=== PATIENT | male | born 1990 | race Two or more races ===

== ENCOUNTER 2023-07-02 22:39 | Inpatient (IN) ==
--- NOTE | 2023-07-02 23:19 | DR.EXTPAIN ---
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 Patient cannot recall: trauma or fall, fever, chills , extremity weakness. Patient states that he has been having nausea and pain with ambulation. Chief Complaint:: Patient stated that approx two weeks ago he noticed that his left leg started swelling. Patient left leg from the knee to the foot is noted to be swollen, Red, Hot, with 3+ pitting edema from the knee to the foot. Self Treatment fo Chief Complaint: N/A COVID-19 Coronavirus risk:travel/contact w/high risk person: No Has patient experienced Coronavirus symptoms: No Source History Provided: Patient and Family Member Mode of arrival Mode of Arrival: Ambulatory Timing Onset of Chief Complaint: 06/18/23 PMH PMH Past Medical History: No Past Surgical History: No Family History History of Family Medical Conditions: No Social History Does patient currently use any type of tobacco product: No Have you used tobacco products in the last 12 months: No Type of Tobacco Use: None Does any household member use tobacco: No Alcohol Use: None Do you use any recreational Drugs:: No Lives With: Family Lives Where: Home Travel Risk Coronavirus risk:travel/contact w/high risk person: No Has patient experienced Coronavirus symptoms: No Infectious screening In the last 2 months have you had wt loss of >10#?: NO Have you had fever, night sweats or hemotysis?: No Have you traveled outside the country in the last 6 months?: No Isolation: Standard ROS Review of Systems Constitutional: Weakness Eyes: No Symptoms Reported ENTM: No Symptoms Reported Respiratoy: No Symptoms Reported Cardiovascular: No Symptoms Reported Gastrointestinal/Abdominal: Nausea and Vomiting Genitourinary: No Symptoms Reported Neurological: No Symptoms Reported Musculoskeletal: Left and Leg (pain) Integumentary: Change in Color (marked erythema,edema LLE) and Other (Warmth LLE) Hematologic/Lymphatic: No Symptoms Reported Endocrine: No Symptoms Reported Psychiatric: No Symptoms Reported All Other Systems: Reviewed and Negative PE Vital Signs Vitals: Vital Signs Temperature 98.5 F Pulse Rate 102 Pulse Rate 102 Pulse Rate 96 Pulse Rate 96 Pulse Rate 95 Pulse Rate 97 Pulse Rate 97 Pulse Rate 100 Pulse Rate 99 Pulse Rate 102 Pulse Rate 103 Pulse Rate 108 Pulse Rate 104 Pulse Rate 118 Respiratory Rate 27 Respiratory Rate 23 Respiratory Rate 23 Respiratory Rate 23 Respiratory Rate 26 Respiratory Rate 27 Respiratory Rate 18 Respiratory Rate 20 Blood Pressure 123/67 Blood Pressure 120/69 Blood Pressure 130/71 Blood Pressure 124/74 Blood Pressure 119/74 Blood Pressure 119/74 Blood Pressure 136/80 O2 Sat by Pulse Oximetry 100 O2 Sat by Pulse Oximetry 100 O2 Sat by Pulse Oximetry 100 O2 Sat by Pulse Oximetry 100 O2 Sat by Pulse Oximetry 99 O2 Sat by Pulse Oximetry 100 O2 Sat by Pulse Oximetry 100 O2 Sat by Pulse Oximetry 99 O2 Sat by Pulse Oximetry 98 O2 Sat by Pulse Oximetry 98 O2 Sat by Pulse Oximetry 99 O2 Sat by Pulse Oximetry 99 O2 Sat by Pulse Oximetry 99 O2 Sat by Pulse Oximetry 95 General Limitations: No Limitations General Appearance: Alert and In No Apparent Distress Head Head Exam: Normal Inspection Eyes Eye exam: Normal Appearance ENT ENT Exam: Normal Exam Neck Neck Exam: Normal Inspection Chest Chest Inspection: Normal Inspection Respiratory Respiratory Exam: Normal Lung Sounds Bilat Respiratory Exam: Bilateral: Clear to Auscultation Cardiovascular Cardiovascular Exam: Regular Rate and Normal Rhythm Abdominal Exam Abdominal Exam: Normal Inspection, Normal Bowel Sounds and Soft Extremities Extremities Exam: Tenderness (LLE), Edema (LLE ) and Joint Swelling Lower Extremities Hip/Pelvis Exam: Tenderness (LLE) and Swelling Back Back Exam: Normal Inspection Neurological Neurological Exam: Alert, Oriented X3 and CN II-XII Intact Psychiatric Psychiatric Exam: Normal Affect and Normal Mood Skin Skin Exam: Warm, Dry, Intact and Normal Color MDM Differential Diagnosis Differential Diagnosis: Fracture and Other (cellulitis,osteomyelitis,dislocation,dvt) COURSE Treatment Treatment: Patient was brought to a monitored room and IV access was initiated. Patient received vancomycin 1500 mg IV loading dose and NS w/ 20meq KCL iv at 100ml/hr iv because of K 2.9. 12:[address] Hansen who accepts Patient to his service for further inpatient evaluation. Dr Hansen requested doppler U/s of the LLE and vancomycin 1g iv q 12hrs. 02:32 Patient's doppler u/s was negative for DVT. ROR Labs Reviewed 07/02/23 23:30 07/02/23 23:30 Laboratory: WBC 20.0 X10^3/uL (3.6-10.0) H 07/02/23 23:30 RBC 4.59 X10^6/uL (4.7-6.0) L 07/02/23 23:30 Hgb 13.7 g/dL (13.5-18.0) 07/02/23 23:30 Hct 40.3 % (42.0-54.0) L 07/02/23 23:30 MCV 87.9 fL (80.0-100.0) 07/02/23 23: MCH 29.9 pg (27.0-34.0) 07/02/23 23: MCHC 34.0 g/dL (33.0-35.0) 07/02/23 23: RDW 14.0 % (11.6-16.5) 07/02/23: Plt Count 272 X10^3/uL (150.0-450.0) 07/02/23 23:30 MPV 7.8 fL (7.4-11.0) 07/02/23 23:30 Neut % (Auto) 81.6 % (42.0-75.0) H 07/02/23 23:30 Lymph % (Auto) 12.4 % (21.0-51.0) L 07/02/23 23:30 [place] % (Auto) 5.6 % (0.0-13.0) 07/02/23 23:30 Eos % (Auto) 0.0 % (0.9-2.9) L 07/02/23 23:30 Baso % (Auto) 0.4 % (0.2-1.0) 07/02/23 23:30 Neut # (Auto) 16.4 x10^3/uL (2.2-4.8) H 07/02/23 23:30 Lymph # (Auto) 2.5 X10^3/uL (1.3-2.9) 07/02/23 23:30 [place] # (Auto) 1.1 x10^3/uL (0.3-0.8) H 07/02/23 23:30 Eos # (Auto) 0.0 x10^3/uL (0.0-0.2) 07/02/23 23:30 Baso # (Auto) 0.1 X10^3/uL (0.0-0.1) 07/02/23 23:30 Absolute Nucleated RBC 0.0 /100WBC 07/02/23 23:30 PT 15.1 SECONDS (11.8-14.3) 07/02/23 23:30 INR Target Range - 07/02/23 23: INR 1.22 (0.8-1.3) 07/02/23 23:30 APTT 33.0 SECONDS (22.9-36.5) 07/02/23 23:30 PTT Comment - 07/02/23 23: D-Dimer 2.07 ug/ml (0.0-0.57) H 07/02/23 23:30 Sodium 132 mmol/L (136-145) L 07/02/23 23:30 Corrected Sodium TNP 07/02/23 23:30 Potassium 2.9 mmol/L (3.5-5.1) L* 07/02/23 23:30 Chloride 96 mmol/L (98-107) L 07/02/23 23:30 Carbon Dioxide 26.5 mmol/L (21-32) 07/02/23 23:30 BUN 13 mg/dL (7-18) 07/02/23 23:30 Creatinine 1.25 mg/dL (0.70-1.30) 07/02/23 23:30 Est GFR (MDRD) Af Amer > 60 (>60) 07/02/23 23:30 Est GFR (MDRD) Non-Af > 60 (>60) 07/02/23 23:30 Glucose 100 mg/dL (65-99) H 07/02/23 23:30 Lactic Acid 2.0 mmol/L (0.4-2.0) 07/02/23 23:30 Calcium 8.6 mg/dL (8.5-10.1) 07/02/23 23:30 Corrected Calcium TNP 07/02/23 23:30 Total Bilirubin 1.00 mg/dL (0.2-1.0) 07/02/23 23:30 AST 39 Units/L (15-37) H 07/02/23 23:30 ALT 119 Units/L (12-78) H 07/02/23 23:30 Alkaline Phosphatase 137 Units/L (46-116) H 07/02/23 23:30 C-Reactive Protein 50.90 mg/L (0-3.0) H 07/02/23 23:30 Total Protein 9.0 g/dL (6.4-8.2) H 07/02/23 23:30 Albumin 3.6 g/dL (3.4-5.0) 07/02/23 23:30 Globulin 5.4 g/dL (2.5-4.5) H 07/02/23 23:30 Albumin/Globulin Ratio 0.7 Ratio (1.1-2.1) L 07/02/23 23:30 Specimen Type Clean catch urine 07/03/23 00:22 Urine Color Pale yellow (YELLOW) 07/03/23 00:22 Urine Appearance Clear (CLEAR) 07/03/23 00:22 Urine pH 6.0 (5.0 - 8.0) 07/03/23 00:22 Ur Specific [place] 1.015 (1.000-1.030) 07/03/23 00:22 Urine Protein Negative (NEGATIVE) 07/03/23 00:22 Urine Glucose (UA) Negative (NEGATIVE) 07/03/23 00:22 Urine Ketones Negative (NEGATIVE) 07/03/23 00:22 Urine Blood Negative (NEGATIVE) 07/03/23 00:22 Urine Nitrite Negative (NEGATIVE) 07/03/23 00:22 Urine Bilirubin Negative (NEGATIVE) 07/03/23 00:22 Urine Urobilinogen Normal (NORMAL) 07/03/23 00:22 Ur Leukocyte Esterase Negative (NEGATIVE) 07/03/23 00:22 Opioid Opioid Risk Tool Age (Chad box if 16-45): Yes History of Preadolescent Sexual Abuse: No Total: 1 Total Score Risk Category: Low Risk Copyright: [employer] B[employer]OM predicting aberrant behaviors Discharge Plan Diagnosis Discharge Problem: Cellulitis of left lower extremity, Acute hypokalemia Discharge Plan Patient Disposition: 09 ADMITTED INPATIENT Condition: Stable Orders to Discharge Patient Discharge Orders: Transfer (Routine); Ordered 07/03/23 Ordered By: Agnes Aguilar
[2023-07-02] MEDS: VANCOMYCIN IV *PREMIX 1.5 G/300 ML BAG 1.5 G/300 ML PIGGYBACK IV SCH (23:35)
[2023-07-02 23:47] LABS: BASOPHILS # (AUTO) 0.1 X10^3/uL (0.0-0.1); BASOPHILS % (AUTO) 0.4 % (0.2-1.0); HEMATOCRIT 40.3 % (42.0-54.0); HEMOGLOBIN 13.7 g/dL (13.5-18.0); LYMPHOCYTES # (AUTO) 2.5 X10^3/uL (1.3-2.9); LYMPHOCYTES % (AUTO) 12.4 % (21.0-51.0); MEAN CORPUSCULAR HEMOGLOBIN 29.9 pg (27.0-34.0); MEAN CORPUSCULAR VOLUME 87.9 fL (80.0-100.0); MEAN PLATELET VOLUME 7.8 fL (7.4-11.0); MONOCYTES # (AUTO) 1.1 x10^3/uL (0.3-0.8); MONOCYTES % (AUTO) 5.6 % (0.0-13.0); NEUTROPHILS # (AUTO) 16.4 x10^3/uL (2.2-4.8); NEUTROPHILS % (AUTO) 81.6 % (42.0-75.0); PLATELET COUNT 272 X10^3/uL (150.0-450.0); RED BLOOD COUNT 4.59 X10^6/uL (4.7-6.0)
[2023-07-02 23:53] LABS: ALANINE AMINOTRANSFERASE 119 Units/L (12-78); ALBUMIN 3.6 g/dL (3.4-5.0); ALKALINE PHOSPHATASE 137 Units/L (46-116); ASPARTATE AMINO TRANSFERASE 39 Units/L (15-37); BLOOD UREA NITROGEN 13 mg/dL (7-18); CALCIUM 8.6 mg/dL (8.5-10.1); CARBON DIOXIDE 26.5 mmol/L (21-32); CHLORIDE 96 mmol/L (98-107); CREATININE 1.25 mg/dL (0.70-1.30); GLUCOSE 100 mg/dL (65-99); SODIUM 132 mmol/L (136-145); eGFR NON BLACK RACES > 60 (>60)
[2023-07-02 23:54] LABS: POTASSIUM 2.9 mmol/L (3.5-5.1)
--- NOTE | 2023-07-03 | RAD ---
EXAM: LOWER LEG, TIB/FIB LEFT HISTORY: Patient stated that approx two weeks ago he noticed that his left leg started swelling. Patient left leg from the knee to the foot is noted to be swollen, Red, Hot, with 3+ pitting edema from the knee t o the foot.; NO MEDICAL HX Unavailable COMPARISON: None. FINDINGS: AP and lateral radiographs of the left lower extremity demonstrate no evidence for acute cortical dis ruption. There is mild soft tissue swelling involving the anterior lower leg. No radiopaque foreign bodies. IMPRESSION: Mild soft tissue swelling anterior lower leg. No acute bony abnormality THIS IS AN ELECTRONICALLY VERIFIED FINAL REPORT 07/02/2023 11:57 PM - Electronically signed by Lionel Bess MD
[2023-07-03] MEDS: NS + KCL 20 MEQ/L 1,000 ML IV ONE (00:06)
[2023-07-03 00:38] LABS: BILIRUBIN,URINE NEGATIVE (NEGATIVE); BLOOD/HEMOGLOBIN,URINE NEGATIVE (NEGATIVE); GLUCOSE, URINE NEGATIVE (NEGATIVE); KETONES,URINE NEGATIVE (NEGATIVE); LEUKOCYTE ESTERASE ,URINE NEGATIVE (NEGATIVE); NITRITES,URINE NEGATIVE (NEGATIVE); PROTEIN,URINE NEGATIVE (NEGATIVE); UROBILINOGEN,URINE NORMAL (NORMAL)
[2023-07-03 00:42] LABS: APPEARANCE,URINE CLEAR (CLEAR); COLOR,URINE PALE YELLOW (YELLOW)
--- NOTE | 2023-07-03 01:38 | EKG ---
Test Reason : HypoKalemia Blood Pressure : */* mmHG Vent. Rate : 98 BPM Atrial Rate : 98 BPM P-R Int : 194 ms QRS Dur : 112 ms QT Int : 376 ms P-R-T Axes : 61 69 34 degrees QTc Int : 480 ms Normal sinus rhythm RSR' or QR pattern in V1 suggests right ventricular conduction delay Abnormal ECG No previous ECGs available Confirmed by Artemio Rand MD ([id number]) on 07/03/2023 7:25:59 AM Referred By: Confirmed By: Artemio Rand MD
[2023-07-03 01:55] LABS: INR 1.22 (0.8-1.3)
--- NOTE | 2023-07-03 02:31 | VAS ---
EXAM:LOWER EXT VENOUS, UNILATERALHISTORY:LLE edema,pain with amb,for 2 wks; LLE EDEMA,PAIN,REDNESS UnavailableCOMPARISON:None.TECHNIQUE:Mul tiple hall scale and color flow Doppler images of the deep venous system were obtained of the left lower extremity.FINDINGS:The deep venous system of the left lower extremity were evaluated from the level of the common femoral vein through the popliteal vein. Normal color flow and augmentation can be observed. In addition, normal compression is seen throughout the deep venous system.There are prominent lymph nodes in the left groin the largest measuring 3.5 cm.IMPRESSION:Negative for DVT.THIS IS AN ELECTRONICALLY VERIFIED FINAL REPORT07/03/2023 2:27 AM - Electronically signed by Lionel Bess MD
[2023-07-03] MEDS ORDERED: CONSULT PHARMACY - POTASSIUM & MAGNESIUM XX SCH (03:21)
[2023-07-03] MEDS ORDERED: VANCOMYCIN IV *PREMIX 1 G/200 ML BAG 1 G/200 ML PIGGYBACK IV SCH (03:21)
[2023-07-03] MEDS ORDERED: REGLAN INJ 10 MG VIAL IVP PRN (03:21)
[2023-07-03 03:52] VITALS: BMI 32.8
[2023-07-03] MEDS: K-DUR TAB 20 MEQ PO ONE ×2 (05:05→08:46)
[2023-07-03 06:34] LABS: BASOPHILS # (AUTO) 0.1 X10^3/uL (0.0-0.1); BASOPHILS % (AUTO) 0.9 % (0.2-1.0); EOSINOPHILS % (AUTO) 0.1 % (0.9-2.9); HEMATOCRIT 39.5 % (42.0-54.0); HEMOGLOBIN 13.3 g/dL (13.5-18.0); LYMPHOCYTES # (AUTO) 2.2 X10^3/uL (1.3-2.9); LYMPHOCYTES % (AUTO) 13.8 % (21.0-51.0); MEAN CORPUSCULAR HGB CONC 33.7 g/dL (33.0-35.0); MEAN PLATELET VOLUME 8.1 fL (7.4-11.0); MONOCYTES # (AUTO) 1.3 x10^3/uL (0.3-0.8); MONOCYTES % (AUTO) 8.3 % (0.0-13.0); NEUTROPHILS # (AUTO) 12.5 x10^3/uL (2.2-4.8); NEUTROPHILS % (AUTO) 76.9 % (42.0-75.0); PLATELET COUNT 254 X10^3/uL (150.0-450.0); RED BLOOD COUNT 4.44 X10^6/uL (4.7-6.0); RED CELL DISTRIBUTION WIDTH 14.2 % (11.6-16.5); WHITE BLOOD COUNT 16.3 X10^3/uL (3.6-10.0)
[2023-07-03 06:55] LABS: ALANINE AMINOTRANSFERASE 101 Units/L (12-78); ALBUMIN 3.2 g/dL (3.4-5.0); ALKALINE PHOSPHATASE 125 Units/L (46-116); ASPARTATE AMINO TRANSFERASE 32 Units/L (15-37); BLOOD UREA NITROGEN 12 mg/dL (7-18); CALCIUM 8.6 mg/dL (8.5-10.1); CARBON DIOXIDE 27.5 mmol/L (21-32); CHLORIDE 100 mmol/L (98-107); COR CA(FOR HYPOALB) 9.2 mg/dL (8.5-10.1); CREATININE 0.97 mg/dL (0.70-1.30); GLUCOSE 97 mg/dL (65-99); POTASSIUM 3.4 mmol/L (3.5-5.1); SODIUM 133 mmol/L (136-145); TOTAL PROTEIN 8.5 g/dL (6.4-8.2); eGFR NON BLACK RACES > 60 (>60)
[2023-07-03] MEDS: BENADRYL CAP/TAB 25 MG PO SCH (08:46)
[2023-07-03] MEDS: NS 1,000 ML IV 1,000 ML IV SCH (13:07)
[2023-07-03 15:04] LABS: ALANINE AMINOTRANSFERASE 91 Units/L (12-78); ALKALINE PHOSPHATASE 115 Units/L (46-116); ASPARTATE AMINO TRANSFERASE 29 Units/L (15-37); BLOOD UREA NITROGEN 11 mg/dL (7-18); CALCIUM 8.4 mg/dL (8.5-10.1); CARBON DIOXIDE 27.1 mmol/L (21-32); CHLORIDE 103 mmol/L (98-107); COR CA(FOR HYPOALB) 9.2 mg/dL (8.5-10.1); CREATININE 0.99 mg/dL (0.70-1.30); GLUCOSE 86 mg/dL (65-99); POTASSIUM 3.9 mmol/L (3.5-5.1); SODIUM 135 mmol/L (136-145); TOTAL PROTEIN 8.2 g/dL (6.4-8.2); eGFR NON BLACK RACES > 60 (>60)
[2023-07-04 05:30] LABS: BASOPHILS # (AUTO) 0.1 X10^3/uL (0.0-0.1); BASOPHILS % (AUTO) 1.1 % (0.2-1.0); EOSINOPHILS # (AUTO) 0.2 x10^3/uL (0.0-0.2); HEMATOCRIT 39.7 % (42.0-54.0); HEMOGLOBIN 13.3 g/dL (13.5-18.0); LYMPHOCYTES # (AUTO) 3.3 X10^3/uL (1.3-2.9); LYMPHOCYTES % (AUTO) 29.4 % (21.0-51.0); MEAN CORPUSCULAR HGB CONC 33.4 g/dL (33.0-35.0); MEAN CORPUSCULAR VOLUME 89.8 fL (80.0-100.0); MEAN PLATELET VOLUME 8.3 fL (7.4-11.0); MONOCYTES # (AUTO) 0.8 x10^3/uL (0.3-0.8); MONOCYTES % (AUTO) 7.5 % (0.0-13.0); NEUTROPHILS # (AUTO) 6.7 x10^3/uL (2.2-4.8); PLATELET COUNT 257 X10^3/uL (150.0-450.0); RED BLOOD COUNT 4.42 X10^6/uL (4.7-6.0); RED CELL DISTRIBUTION WIDTH 14.2 % (11.6-16.5); WHITE BLOOD COUNT 11.2 X10^3/uL (3.6-10.0)
[2023-07-04 08:40] LABS: CREATININE 0.84 mg/dL (0.70-1.30); VANCOMYCIN,TROUGH 5.5 ug/mL (15-20)
[2023-07-04] MEDS: PHARMACY COMMENT IV NR (08:54)
[2023-07-04] MEDS: VANCOMYCIN IV *PREMIX 1.25 G/250 ML BAG 1.25 G/250 ML PIGGYBACK IV SCH (09:29)
--- NOTE | 2023-07-04 11:05 | DR.H&P ---
H&P History & Physical for Day of: H&P Date: 07/02/23 Chief Complaint Chief Complaint: pain, redness and swelling to left leg History of Present Illness History of Present Illness: PT IS 33 HM, ER ADMISSION WITH CO LLE PAIN, REDNESS AND SWELLING OVER THE PAST TWO WEEKS. PT STATES HE HAS POSSIBLE INSECT BITE TO LEFT LOWER LEG, STARTED WITH ITCHING, THEN TWO SMALL BLISTERS. PT CO NAUSEA DUE TO PAIN AND FEVER. PT DENIES ANY PMH OF HTN OR DM. PT ADMITTED FOR TREATMENT AND EVALUATION OF ACUTE ILLNESS Social History Does patient currently use any type of tobacco product: No Have you used tobacco products in the last 12 months: No Type of Tobacco Use: None Does any household member use tobacco: No Alcohol Use: None Drug Use: None Medications Home Medications: Home Medications Medication Instructions Recorded Confirmed Type NK 07/02/23 07/02/23 History Allergies Allergies Allergy/AdvReac Type Severity Reaction Status Date / Time No Known Allergies Allergy Verified 07/02/23 23:16 Labs 07/04/23 04:25 07/04/23 08:11 Labs: 07/02/23 23:30 Blood Blood Culture - Preliminary 07/02/23 23:25 Blood Blood Culture - Preliminary Laboratory WBC 11.2 X10^3/uL (3.6-10.0) H 07/04/23 04:25 RBC 4.42 X10^6/uL (4.7-6.0) L 07/04/23 04:25 Hgb 13.3 g/dL (13.5-18.0) L 07/04/23 04:25 Hct 39.7 % (42.0-54.0) L 07/04/23 04:25 MCV 89.8 fL (80.0-100.0) 07/04/23 04:25 MCH 30.0 pg (27.0-34.0) 07/04/23 04:25 MCHC 33.4 g/dL (33.0-35.0) 07/04/23 04:25 RDW 14.2 % (11.6-16.5) 07/04/23 04:25 Plt Count 257 X10^3/uL (150.0-450.0) 07/04/23 04:25 MPV 8.3 fL (7.4-11.0) 07/04/23 04:25 Neut % (Auto) 60.0 % (42.0-75.0) 07/04/23 04:25 Lymph % (Auto) 29.4 % (21.0-51.0) 07/04/23 04:25 [place] % (Auto) 7.5 % (0.0-13.0) 07/04/23 04:25 Eos % (Auto) 2.0 % (0.9-2.9) 07/04/23 04:25 Baso % (Auto) 1.1 % (0.2-1.0) H 07/04/23 04:25 Neut # (Auto) 6.7 x10^3/uL (2.2-4.8) H 07/04/23 04:25 Lymph # (Auto) 3.3 X10^3/uL (1.3-2.9) H 07/04/23 04:25 [place] # (Auto) 0.8 x10^3/uL (0.3-0.8) 07/04/23 04:25 Eos # (Auto) 0.2 x10^3/uL (0.0-0.2) 07/04/23 04:25 Baso # (Auto) 0.1 X10^3/uL (0.0-0.1) 07/04/23 04:25 Absolute Nucleated RBC 0.0 /100WBC 07/04/23 04:25 PT 15.1 SECONDS (11.8-14.3) 07/02/23 23:30 INR Target Range - 07/02/23 23:30 INR 1.22 (0.8-1.3) 07/02/23 23:30 APTT 33.0 SECONDS (22.9-36.5) 07/02/23 23:30 PTT Comment - 07/02/23 23:30 D-Dimer 2.07 ug/ml (0.0-0.57) H 07/02/23 23:30 Sodium 135 mmol/L (136-145) L 07/03/23 14:20 Corrected Sodium TNP 07/03/23 14:20 Potassium 3.9 mmol/L (3.5-5.1) 07/03/23 14:20 Chloride 103 mmol/L (98-107) 07/03/23 14:20 Carbon Dioxide 27.1 mmol/L (21-32) 07/03/23 14:20 BUN 11 mg/dL (7-18) 07/03/23 14:20 Creatinine 0.84 mg/dL (0.70-1.30) 07/04/23 08:11 Est GFR (MDRD) Af Amer > 60 (>60) 07/03/23 14:20 Est GFR (MDRD) Non-Af > 60 (>60) 07/03/23 14:20 Glucose 86 mg/dL (65-99) 07/03/23 14:20 Hemoglobin A1c 5.7 % 07/03/23 05:48 Lactic Acid 2.0 mmol/L (0.4-2.0) 07/02/23 23:30 Calcium 8.4 mg/dL (8.5-10.1) L 07/03/23 14:20 Corrected Calcium 9.2 mg/dL (8.5-10.1) 07/03/23 14:20 Magnesium 2.0 mg/dL (2.0-2.9) 07/03/23 05:48 Total Bilirubin 1.30 mg/dL (0.2-1.0) H 07/03/23 14:20 AST 29 Units/L (15-37) 07/03/23 14:20 ALT 91 Units/L (12-78) H 07/03/23 14:20 Alkaline Phosphatase 115 Units/L (46-116) 07/03/23 14:20 C-Reactive Protein 50.90 mg/L (0-3.0) H 07/02/23 23:30 Total Protein 8.2 g/dL (6.4-8.2) 07/03/23 14:20 Albumin 3.0 g/dL (3.4-5.0) L 07/03/23 14:20 Globulin 5.2 g/dL (2.5-4.5) H 07/03/23 14:20 Albumin/Globulin Ratio 0.6 Ratio (1.1-2.1) L 07/03/23 14:20 Specimen Type Clean catch urine 07/03/23 00:22 Urine Color Pale yellow (YELLOW) 07/03/23 00:22 Urine Appearance Clear (CLEAR) 07/03/23 00:22 Urine pH 6.0 (5.0 - 8.0) 07/03/23 00:22 Ur Specific [place] 1.015 (1.000-1.030) 07/03/23 00:22 Urine Protein Negative (NEGATIVE) 07/03/23 00:22 Urine Glucose (UA) Negative (NEGATIVE) 07/03/23 00:22 Urine Ketones Negative (NEGATIVE) 07/03/23 00:22 Urine Blood Negative (NEGATIVE) 07/03/23 00:22 Urine Nitrite Negative (NEGATIVE) 07/03/23 00:22 Urine Bilirubin Negative (NEGATIVE) 07/03/23 00:22 Urine Urobilinogen Normal (NORMAL) 07/03/23 00:22 Ur Leukocyte Esterase Negative (NEGATIVE) 07/03/23 00:22 Vancomycin Trough 5.5 ug/mL (15-20) L 07/04/23 08:11 Review of Systems Constitutional: Fever Eyes: No Symptoms Reported ENT: No Symptoms Reported Respiratory: No Symptoms Reported Cardiovascular: No Symptoms Reported Gastrointestinal: Nausea Genitourinary: No Symptoms Reported Musculoskeletal: Leg Pain Skin: Rash Neurological: No Symptoms Reported Physical Exam Vital Signs: Vital Signs Temperature 97.3 F Temperature 98.2 F Pulse Rate [Left] 73 Pulse Rate [Left] 62 Respiratory Rate 16 Respiratory Rate 19 Blood Pressure [Left Arm] 121/69 Blood Pressure [Left Arm] 119/69 O2 Sat by Pulse Oximetry 97 O2 Sat by Pulse Oximetry 99 Oriented: Normal Eyes: Normal Ear: Normal Nose: Normal Throat: Normal Respiratory: Clear Throughout Cardiovascular: Normal : Normal Auscultation: Bowel Sounds: Normal Palpation: Normal Tenderness: Normal Skin: Rash, Red and Tender Musculoskeletal: Leg, Foot, Swelling and Tender Psychiatric: Normal Mood Description: Calm Affect: Normal Speech Pattern: Clear and Appropriate Assessment/Plan (1) Cellulitis of left lower extremity: Narrative Support Text: ADMIT, BC ON ADMISSION PAIN CONTROL IV ATBX, XRAY ON ADMISSION AND US RO DVT Status: Acute (2) Acute hypokalemia: Status: Acute
[2023-07-04] MEDS: NS 1,000 ML IV 1,000 ML IV SCH (13:37)
[2023-07-04] MEDS: PROTONIX TAB 40 MG PO SCH (13:37)
--- NOTE | 2023-07-04 15:03 | RAD ---
EXAM:CHEST, PA/LAT ADULTHISTORY:Chest pain with deep breathing;COMPARISON:No relevant prior studies were available for comparison at the time of interpretation.TECHNIQUE:CHEST, PA/LAT ADULTFINDINGS:Chest:Lines and tubes: Cardiac leads overlie the chest.Mediastinum: Cardiac and mediastinal shadow is within normal limits for size and contour.Pulmonary vessels: No pulmonary vascular congestion.Lung sarmiento: No suspicious airspace opacity.Pleura: No effusion. No pneumothorax.Bones and soft tissues: No acute osseous or soft tissue abnormality.IMPRESSION:1. No acute cardiopulmonary abnormalityTHIS IS AN ELECTRONICALLY VERIFIED FINAL REPORT07/04/2023 3:00 PM - Electronically signed by Andres Ortega MD
[2023-07-05] MEDS: PHARMACY COMMENT IV NR (05:48)
[2023-07-05 06:22] LABS: BASOPHILS # (AUTO) 0.1 X10^3/uL (0.0-0.1); BASOPHILS % (AUTO) 0.8 % (0.2-1.0); EOSINOPHILS # (AUTO) 0.2 x10^3/uL (0.0-0.2); EOSINOPHILS % (AUTO) 2.7 % (0.9-2.9); HEMATOCRIT 38.9 % (42.0-54.0); HEMOGLOBIN 12.8 g/dL (13.5-18.0); LYMPHOCYTES # (AUTO) 2.2 X10^3/uL (1.3-2.9); LYMPHOCYTES % (AUTO) 28.3 % (21.0-51.0); MEAN CORPUSCULAR HEMOGLOBIN 29.7 pg (27.0-34.0); MEAN CORPUSCULAR VOLUME 89.9 fL (80.0-100.0); MEAN PLATELET VOLUME 8.6 fL (7.4-11.0); MONOCYTES # (AUTO) 0.5 x10^3/uL (0.3-0.8); MONOCYTES % (AUTO) 6.3 % (0.0-13.0); NEUTROPHILS # (AUTO) 4.8 x10^3/uL (2.2-4.8); NEUTROPHILS % (AUTO) 61.9 % (42.0-75.0); PLATELET COUNT 276 X10^3/uL (150.0-450.0); RED BLOOD COUNT 4.33 X10^6/uL (4.7-6.0); RED CELL DISTRIBUTION WIDTH 14.1 % (11.6-16.5); WHITE BLOOD COUNT 7.7 X10^3/uL (3.6-10.0)
[2023-07-05 06:41] LABS: ALANINE AMINOTRANSFERASE 96 Units/L (12-78); ALBUMIN 2.6 g/dL (3.4-5.0); ALKALINE PHOSPHATASE 143 Units/L (46-116); ASPARTATE AMINO TRANSFERASE 47 Units/L (15-37); BLOOD UREA NITROGEN 7 mg/dL (7-18); CALCIUM 8.1 mg/dL (8.5-10.1); CARBON DIOXIDE 27.6 mmol/L (21-32); CHLORIDE 107 mmol/L (98-107); COR CA(FOR HYPOALB) 9.2 mg/dL (8.5-10.1); CREATININE 0.93 mg/dL (0.70-1.30); GLUCOSE 91 mg/dL (65-99); POTASSIUM 3.8 mmol/L (3.5-5.1); SODIUM 139 mmol/L (136-145); TOTAL PROTEIN 6.9 g/dL (6.4-8.2); eGFR NON BLACK RACES > 60 (>60)
[2023-07-05] MEDS: BACTRIM DS TAB PO SCH (12:39)
[2023-07-05] MEDS: CIPRO TAB 500 MG PO SCH (12:39)
--- NOTE | 2023-07-05 20:50 | PCM.PROG ---
Progress Note Progress Note for Day of Date of Exam: 07/05/23 Subjective Subjective: The patient reports some mild to moderate comfort in the left leg. He states that it is better overall than it has been. The area of concern in his left lower leg is still warm, less erythematous, and mildly tender to palpation. I see that his CRP has trended up since he has been here despite him being on IV vancomycin. I will add oral ciprofloxacin and Bactrim DS today to see if this will help his cellulitis resolve quicker. We will recheck ESR and another CRP tomorrow. Past Medical Family Social History Allergies: Allergies No Known Allergies Allergy (Verified 07/02/23 23:16) Review of Systems ROS: No change since H&P Vital Signs and I&O's Vital Signs: Vital Signs Temperature 98.3 F Temperature 98.4 F Pulse Rate [Left] 79 Pulse Rate [Left] 64 Respiratory Rate 20 Respiratory Rate 18 Blood Pressure [Left Arm] 140/82 Blood Pressure [Left Arm] 130/76 O2 Sat by Pulse Oximetry 99 O2 Sat by Pulse Oximetry 99 Intake and Output: Intake & Output 07/03/23 07/04/23 07/05/23 07/06/23 11:59 11:59 11:59 11:59 Intake Total 251 / 251 2796 / 2796 3921 / 3921 1731 / 1731 Output Total 1000 / 1000 Balance -749 / -749 2796 / 2796 3921 / 3921 1731 / 1731 Physical Exam Oriented: Normal Eyes: Normal Ear: Normal Nose: Normal Throat: Normal Cardiovascular: Normal : Normal Auscultation: Bowel Sounds: Normal Tenderness: Normal Skin: Rash, Red, Tender and Other (Mild edema) Musculoskeletal: Leg, Foot, Swelling and Tender Psychiatric: Normal Mood Description: Calm Affect: Normal Speech Pattern: Clear and Appropriate Laboratory and Diagnostics 07/05/23 05:42 07/05/23 05:42 Labs: 07/02/23 23:30 Blood Blood Culture - Preliminary 07/02/23 23:25 Blood Blood Culture - Preliminary Laboratory WBC 7.7 X10^3/uL (3.6-10.0) 07/05/23 05:42 RBC 4.33 X10^6/uL (4.7-6.0) L 07/05/23 05:42 Hgb 12.8 g/dL (13.5-18.0) L 07/05/23 05:42 Hct 38.9 % (42.0-54.0) L 07/05/23 05:42 MCV 89.9 fL (80.0-100.0) 07/05/23 05:42 MCH 29.7 pg (27.0-34.0) 07/05/23 05:42 MCHC 33.0 g/dL (33.0-35.0) 07/05/23 05:42 RDW 14.1 % (11.6-16.5) 07/05/23 05:42 Plt Count 276 X10^3/uL (150.0-450.0) 07/05/23 05:42 MPV 8.6 fL (7.4-11.0) 07/05/23 05:42 Neut % (Auto) 61.9 % (42.0-75.0) 07/05/23 05:42 Lymph % (Auto) 28.3 % (21.0-51.0) 07/05/23 05:42 [place] % (Auto) 6.3 % (0.0-13.0) 07/05/23 05:42 Eos % (Auto) 2.7 % (0.9-2.9) 07/05/23 05:42 Baso % (Auto) 0.8 % (0.2-1.0) 07/05/23 05:42 Neut # (Auto) 4.8 x10^3/uL (2.2-4.8) 07/05/23 05:42 Lymph # (Auto) 2.2 X10^3/uL (1.3-2.9) 07/05/23 05:42 [place] # (Auto) 0.5 x10^3/uL (0.3-0.8) 07/05/23 05:42 Eos # (Auto) 0.2 x10^3/uL (0.0-0.2) 07/05/23 05:42 Baso # (Auto) 0.1 X10^3/uL (0.0-0.1) 07/05/23 05:42 Absolute Nucleated RBC 0.1 /100WBC 07/05/23 05:42 ESR 47 MM/HOUR (0-15) H 07/05/23 11:36 PT 15.1 SECONDS (11.8-14.3) 07/02/23 23:30 INR Target Range - 07/02/23 23:30 INR 1.22 (0.8-1.3) 07/02/23 23:30 APTT 33.0 SECONDS (22.9-36.5) 07/02/23 23:30 PTT Comment - 07/02/23 23:30 D-Dimer 2.07 ug/ml (0.0-0.57) H 07/02/23 23:30 Sodium 139 mmol/L (136-145) 07/05/23 05:42 Corrected Sodium TNP 07/05/23 05:42 Potassium 3.8 mmol/L (3.5-5.1) 07/05/23 05:42 Chloride 107 mmol/L (98-107) 07/05/23 05:42 Carbon Dioxide 27.6 mmol/L (21-32) 07/05/23 05:42 BUN 7 mg/dL (7-18) 07/05/23 05:42 Creatinine 0.93 mg/dL (0.70-1.30) 07/05/23 05:42 Est GFR (MDRD) Af Amer > 60 (>60) 07/05/23 05:42 Est GFR (MDRD) Non-Af > 60 (>60) 07/05/23 05:42 Glucose 91 mg/dL (65-99) 07/05/23 05:42 Hemoglobin A1c 5.7 % 07/03/23 05:48 Lactic Acid 2.0 mmol/L (0.4-2.0) 07/02/23 23:30 Calcium 8.1 mg/dL (8.5-10.1) L 07/05/23 05:42 Corrected Calcium 9.2 mg/dL (8.5-10.1) 07/05/23 05:42 Magnesium 2.0 mg/dL (2.0-2.9) 07/03/23 05:48 Total Bilirubin 0.40 mg/dL (0.2-1.0) 07/05/23 05:42 AST 47 Units/L (15-37) H 07/05/23 05:42 ALT 96 Units/L (12-78) H 07/05/23 05:42 Alkaline Phosphatase 143 Units/L (46-116) H 07/05/23 05:42 C-Reactive Protein 62.80 mg/L (0-3.0) H 07/05/23 11:36 Total Protein 6.9 g/dL (6.4-8.2) 07/05/23 05:42 Albumin 2.6 g/dL (3.4-5.0) L 07/05/23 05:42 Globulin 4.3 g/dL (2.5-4.5) 07/05/23 05:42 Albumin/Globulin Ratio 0.6 Ratio (1.1-2.1) L 07/05/23 05:42 Specimen Type Clean catch urine 07/03/23 00:22 Urine Color Pale yellow (YELLOW) 07/03/23 00:22 Urine Appearance Clear (CLEAR) 07/03/23 00:22 Urine pH 6.0 (5.0 - 8.0) 07/03/23 00:22 Ur Specific [place] 1.015 (1.000-1.030) 07/03/23 00:22 Urine Protein Negative (NEGATIVE) 07/03/23 00:22 Urine Glucose (UA) Negative (NEGATIVE) 07/03/23 00:22 Urine Ketones Negative (NEGATIVE) 07/03/23 00:22 Urine Blood Negative (NEGATIVE) 07/03/23 00:22 Urine Nitrite Negative (NEGATIVE) 07/03/23 00:22 Urine Bilirubin Negative (NEGATIVE) 07/03/23 00:22 Urine Urobilinogen Normal (NORMAL) 07/03/23 00:22 Ur Leukocyte Esterase Negative (NEGATIVE) 07/03/23 00:22 Vancomycin Trough 5.5 ug/mL (15-20) L 07/04/23 08:11 Random Vancomycin 12.1 ug/mL 07/05/23 05:42 Radiology Reviewed: Yes Plan (1) Cellulitis of left lower extremity: Status: Acute Plan: Continue IV vancomycin. I will add oral Bactrim DS and ciprofloxacin. (2) Acute hypokalemia: Status: Resolved Narrative Support Text: Potassium replacement protocol.
[2023-07-06 05:19] LABS: ALANINE AMINOTRANSFERASE 111 Units/L (12-78); ALBUMIN 2.8 g/dL (3.4-5.0); ALKALINE PHOSPHATASE 114 Units/L (46-116); ASPARTATE AMINO TRANSFERASE 56 Units/L (15-37); BLOOD UREA NITROGEN 7 mg/dL (7-18); CALCIUM 8.3 mg/dL (8.5-10.1); CARBON DIOXIDE 27.7 mmol/L (21-32); CHLORIDE 104 mmol/L (98-107); COR CA(FOR HYPOALB) 9.3 mg/dL (8.5-10.1); CREATININE 0.93 mg/dL (0.70-1.30); GLUCOSE 73 mg/dL (65-99); POTASSIUM 3.6 mmol/L (3.5-5.1); SODIUM 137 mmol/L (136-145); TOTAL PROTEIN 7.7 g/dL (6.4-8.2); eGFR NON BLACK RACES > 60 (>60)
[2023-07-06] MEDS ORDERED: CONSULT PHARMACY - POTASSIUM & MAGNESIUM XX SCH (06:00)
[2023-07-06 06:47] LABS: BASOPHILS % (AUTO) 0.4 % (0.2-1.0); EOSINOPHILS # (AUTO) 0.2 x10^3/uL (0.0-0.2); EOSINOPHILS % (AUTO) 3.4 % (0.9-2.9); HEMATOCRIT 39.5 % (42.0-54.0); HEMOGLOBIN 13.2 g/dL (13.5-18.0); LYMPHOCYTES # (AUTO) 2.3 X10^3/uL (1.3-2.9); LYMPHOCYTES % (AUTO) 34.3 % (21.0-51.0); MEAN CORPUSCULAR HEMOGLOBIN 29.9 pg (27.0-34.0); MEAN CORPUSCULAR HGB CONC 33.4 g/dL (33.0-35.0); MEAN CORPUSCULAR VOLUME 89.4 fL (80.0-100.0); MEAN PLATELET VOLUME 8.1 fL (7.4-11.0); MONOCYTES # (AUTO) 0.5 x10^3/uL (0.3-0.8); MONOCYTES % (AUTO) 7.7 % (0.0-13.0); NEUTROPHILS # (AUTO) 3.7 x10^3/uL (2.2-4.8); NEUTROPHILS % (AUTO) 54.2 % (42.0-75.0); PLATELET COUNT 294 X10^3/uL (150.0-450.0); RED BLOOD COUNT 4.42 X10^6/uL (4.7-6.0); RED CELL DISTRIBUTION WIDTH 13.9 % (11.6-16.5); WHITE BLOOD COUNT 6.8 X10^3/uL (3.6-10.0)
[2023-07-06 06:54] LABS: ERYTHROCYTE SEDIMENTATION RATE 43 MM/HOUR (0-15)
[2023-07-06 07:59] VITALS: BP 107/66; PULSE 69; RESP 20; TEMP 97.3; O2SAT 98
[2023-07-06] MEDS: MAG-OX TAB PO SCH (08:30)
[2023-07-06] MEDS: K-DUR TAB 20 MEQ PO SCH (08:31)
== END 2023-07-06 13:55 | disposition home or self-care (01) | DRG 603 ==
LOC: ER 22:43 → MED/SURG 07-03 02:36
PROVIDERS: ADMIT Internal Medicine; ATTEND Internal Medicine
DX: R70.0 Elevated erythrocyte sedimentation rate; E87.6 Hypokalemia; R79.82 Elevated C-reactive protein (CRP); R60.0 Localized edema; R79.1 Abnormal coagulation profile; L03.116 Cellulitis of left lower limb